=== PATIENT | female | born 1985 | race Caucasian/White ===

== ENCOUNTER 2018-07-23 17:55 | Emergency (ER) | payer OTHER ==
[2018-07-23 18:11] VITALS: BP 103/67
--- NOTE | 2018-07-23 18:14 | UC ---
FLU HPI - HPI Summary HPI Summary: 32 y/o female presets to the urgent care c/o fever, body aches, chills, nasal congestion with clear nasal discharge, mild dry cough, sore throat for the past 4 days. Pain w/ swallowing gis 10/19. She has been taking Ibuprofen PO . But none today. Temp has been low grade fever. She had 1 episode of diarrhea every day. But denies N/V of abdominal pain. Pt states mild COLBERT today. Pt has decrease appetite, but has been drinking fluids. Pt denies dizziness, SOB, chest pain, abdominal pain, N/V. She didn't got the flu vaccine this year. She states her best friend has been Dx with strep. - History of Current Complaint Chief Complaint: UCGeneralIllness Stated Complaint: FEVER, AND SORE THROAT Time Seen by Provider: 07/23/18 18:12 Hx Obtained From: Patient Hx Last Menstrual Period: 06/18/18 ?: No Onset/Duration: Gradual Onset, Lasting Days - 4 day Severity Currently: Mild Severity Initially: Moderate Pain Intensity: 5 - sore thraot Pain Scale Used: 0-10 Numeric Associated Signs & Symptoms: Positive: Fever, T Max - 100.1, Myalgia, Sore Throat, Nasal Congestion - yellowish, Headache - mild - Risk Factors Influenza Risk Factors: Negative - Allergy/Home Medications Allergies/Adverse Reactions: Allergies Allergy/AdvReac Type Severity Reaction Status Date / Time cephalexin [From Keflex] Allergy Swelling Verified 07/23/18 18:11 morphine Allergy Anaphylatic Verified 07/23/18 18:11 Shock Home Medications: Home Medications NK [No Home Medications Reported] 07/23/18 [History Confirmed 07/23/18] PMH/Surg Hx/FS Hx/Imm Hx Previously Healthy: Yes - Surgical History Surgical History: Yes Surgery Procedure, Year, and Place: 2005 appendectomy - Family History Known Family History: Positive: Hypertension - Social History Alcohol Use: None Substance Use Type: None Smoking Status (MU): Never Smoked Tobacco Review of Systems All Other Systems Reviewed And Are Negative: Yes Constitutional: Positive: Fever, Chills, Fatigue, Other - body aches Skin: Positive: Negative Eyes: Positive: Negative ENT: Positive: Sore Throat, Nasal Discharge - yellowish, Sinus Congestion Respiratory: Positive: Cough - dry Cardiovascular: Positive: Negative Gastrointestinal: Positive: Negative Genitourinary: Positive: Negative Motor: Positive: Negative Neurovascular: Positive: Negative Musculoskeletal: Positive: Myalgia Neurological: Positive: Headache Psychological: Positive: Negative Is Patient Immunocompromised?: No Physical Exam - Summary Physical Exam Summary: VITAL SIGNS: Reviewed. GENERAL: Patient is a well developed and nourished female who is sitting comfortable in the examining table. Patient is not in any acute respiratory distress. HEAD AND FACE: No signs of trauma. No ecchymosis, hematomas or skull depressions. No sinus tenderness. EYES: PERRLA, EOMI x 2, No injected conjunctiva, no nystagmus. No photophobia. EARS: Hearing grossly intact. Ear canals and tympanic membranes are within normal limits. Nose: edematous and erythematous nasal mucosa w/ clear nasal discharge. MOUTH: Positive no erythema, no tonsillar enlargement. Uvula in midline. NECK: Supple, trachea is midline, Positive anterior cervical lymphadenopathy, no JVD, no carotid bruit, no c-spine tenderness, neck with full ROM. No meningeal signs, no Kernig's or brudzinskis signs. CHEST: Symmetric, no tenderness at palpation LUNGS: Clear to auscultation bilaterally. No wheezing or crackles. CVS: Regular rate and rhythm, S1 and S2 present, no murmurs or gallops appreciated. ABDOMEN: Soft, non-tender. No signs of distention. No rebound no guarding, and no masses palpated. Bowel sounds are normal. EXTREMITIES: FROM in all major joints, no edema, no cyanosis or clubbing. NEURO: Alert and oriented x 3. No acute neurological deficits. Speech is normal and follows commands. SKIN: Dry and warm Triage Information Reviewed: Yes Vital Signs: Initial Vital Signs Temp 100.1 F 07/23/18 18:07 Pulse 67 07/23/18 18:07 Resp 19 07/23/18 18:07 BP 103/67 07/23/18 18:07 Pulse Ox 100 07/23/18 18:07 Flu Course/Dx - Course Course Of Treatment: 32 y/o female presets to the urgent care c/o fever, body aches, chills, nasal congestion with clear nasal discharge, mild dry cough, sore throat for the past 4 days. Pain w/ swallowing gis 10/19. She has been taking Ibuprofen PO . But none today. Temp has been low grade fever. She had 1 episode of diarrhea every day. But denies N/V of abdominal pain. Pt states mild COLBERT today. Pt has decrease appetite, but has been drinking fluids. Pt denies dizziness, SOB, chest pain, abdominal pain, N/V. She didn't got the flu vaccine this year. She states her best friend has been Dx with strep. Hx obtained. Pt with viral syndrome on examination. Rapid strep: negative, Rapid Influenza A&B: negative. Pt given at the clinic by nurse Ibuprofen PO to alleviate fever. Pt tolerated well medication and temp decrease 99.6. Pt advised to continue taking ibuprofen PO after meals to alleviates symptoms. However if fever persists and worsening of symptoms strongly advised to go inmediately to the ER for further evaluation and treatment. Advised on hand washing. Pt advised to rest, increase fluid intake, eat well and avoid strenuous exercise. D/c instructions explained. Pt understood and agreed with plan of care. - Differential Dx/Diagnosis Differential Diagnosis/HQI/PQRI: Bronchitis, Influenza, Upper Respiratory Infection Provider Diagnosis: Viral syndrome Discharge - Sign-Out/Discharge Documenting (check all that apply): Patient Departure - D/C home All imaging exams completed and their final reports reviewed: No Studies - Discharge Plan Condition: Stable Disposition: HOME Patient Education Materials: Viral Syndrome (ED) Forms: *Work Release Referrals: [facility] [place] [facility]ERRAL [Outside] - 2 Days Additional Instructions: 1-Strep test: negative, Rapid Influenza A&B: negative 2-Please continue taking ibuprofen PO q6-8hrs prn as instructed after meals to alleviate pain and swelling. Increase fluid intake, eat well, rest and avoid strenuous exercise 3- If symptoms worsen and you can't control fever with the ibuprofen/Tylenol please go immediately to the ER for further evaluation and treatment. Otherwise f/u with your PCP if not improvement of symptoms. - Billing Disposition and Condition Condition: STABLE Disposition: Home
[2018-07-23] MEDS ORDERED: Ibuprofen TAB* 400 MG PO ONE (18:22)
[2018-07-23 18:32] LABS: Influenza A Molecular NEGATIVE (Negative); Influenza B Molecular NEGATIVE (Negative)
== END 2018-07-23 19:00 | disposition home or self-care (01) ==
LOC: UCEAST 17:55
DX: B34.9 Viral infection, unspecified (principal); Z88.5 Allergy status to narcotic agent; Z88.1 Allergy status to other antibiotic agents
CPT/HCPCS: 87651; 99211; A9270-GY; G0463

== ENCOUNTER 2018-08-22 18:03 | Emergency (ER) | payer OTHER ==
[2018-08-22 18:29] VITALS: BP 103/68
--- NOTE | 2018-08-22 19:21 | UC ---
FLU HPI - HPI Summary HPI Summary: 32-year-old female presents with 5 day history of fever, chills, body aches, nasal congestion, runny nose, sore throat, and a nonproductive cough. Reports max temp of 102 F. States she had similar symptoms approximately 3 weeks ago which lasted approximately 10 days with complete resolution of symptoms. She was seen at this facility and tested for influenza and strep throat which were both negative. Denies ear pain, dysphagia, chest pain, shortness of breath, abdominal pain, nausea, vomiting, diarrhea. - History of Current Complaint Chief Complaint: UCGeneralIllness Stated Complaint: FEVER Time Seen by Provider: 08/22/18 19:03 Hx Obtained From: Patient Hx Last Menstrual Period: 06/18/18 Pain Intensity: 8 - Allergy/Home Medications Allergies/Adverse Reactions: Allergies Allergy/AdvReac Type Severity Reaction Status Date / Time cephalexin [From Keflex] Allergy Swelling Verified 08/22/18 18:29 morphine Allergy Anaphylatic Verified 08/22/18 18:29 Shock PMH/Surg Hx/FS Hx/Imm Hx Previously Healthy: Yes - Denies significant PMH - Surgical History Surgical History: Yes Surgery Procedure, Year, and Place: 2006 appendectomy - Family History Known Family History: Positive: Hypertension - Social History Occupation: Employed Full-time Lives: With Family Alcohol Use: None Substance Use Type: None Smoking Status (MU): Never Smoked Tobacco Review of Systems All Other Systems Reviewed And Are Negative: Yes Constitutional: Positive: Fever, Chills, Fatigue Skin: Negative: Rash Eyes: Negative: Drainage, Eye Redness ENT: Positive: Sore Throat, Nasal Discharge, Sinus Congestion. Negative: Ear Ache, Sinus Pain/Tenderness Respiratory: Positive: Cough. Negative: Shortness Of Breath Cardiovascular: Negative: Palpitations, Chest Pain Gastrointestinal: Negative: Abdominal Pain, Vomiting, Diarrhea, Nausea Genitourinary: Positive: Negative Musculoskeletal: Positive: Negative Neurological: Positive: Negative Is Patient Immunocompromised?: No Physical Exam - Summary Physical Exam Summary: GENERAL APPEARANCE: Well developed, well nourished, alert and cooperative, and appears to be in no acute distress. EYES: Conjunctiva clear. No drainage. Vision is grossly intact. EARS: External auditory canals and tympanic membranes clear, hearing grossly intact. NOSE: Mild-moderate nasal congestion with clear nasal discharge. THROAT: Mild pharyngeal erythema. No tonsilar inflammation, swelling, exudate, or lesions. Uvula midline. Oral cavity normal. Teeth and gingiva in good general condition. NECK: Neck supple, non-tender without lymphadenopathy. CARDIAC: Normal S1 and S2. No S3, S4 or murmurs. Rhythm is regular. There is no peripheral edema, cyanosis or pallor. Extremities are warm and well perfused. Capillary refill is less than 2 seconds. Peripheral pulses intact. LUNGS: Clear to auscultation without rales, rhonchi, wheezing or diminished breath sounds. Dry, non-productive cough. ABDOMEN: Positive bowel sounds. Soft, nondistended, nontender. No guarding or rebound. No masses or hepatosplenomegally. MUSKULOSKELETAL: ROM intact to all extremities. No joint erythema or tenderness. Normal muscular development. Normal gait. SKIN: Skin normal color, texture and turgor with no lesions or eruptions. Triage Information Reviewed: Yes Vital Signs: Initial Vital Signs Temp 99.8 F 08/22/18 18:25 Pulse 62 08/22/18 18:25 Resp 18 08/22/18 18:25 BP 103/68 08/22/18 18:25 Pulse Ox 100 08/22/18 18:25 Vital Signs Reviewed: Yes Flu Course/Dx - Course Course Of Treatment: 32-year-old female presents with 5 day history of fever, chills, body aches, nasal congestion, runny nose, sore throat, and a nonproductive cough. States she had similar symptoms approximately 3 weeks ago which lasted approximately 10 days with complete resolution of symptoms. She was seen at this facility and tested for influenza and strep throat which were both negative. Denies ear pain, dysphagia, chest pain, shortness of breath, abdominal pain, nausea, vomiting, diarrhea. Afebrile. Vital signs stable. Exam reveals an adult female in no acute distress with mild to moderate nasal congestion, clear nasal discharge, mild pharyngeal erythema without tonsillar swelling or exudate, no cervical lymphadenopathy, clear bilateral breath sounds , dry nonproductive cough, and otherwise unremarkable exam. Her symptoms are suspicious for influenza versus viral URI. Based on the duration of her symptoms she is not eligible for Tamiflu at this time. Recommending symptomatic treatment including Tessalon Perles one capsule every 8 hours as needed for cough. She is to return here or follow up with her primary care provider in 7 days if symptoms do not improve. Anticipatory guidance and warning symptoms were reviewed with the patient. Verbalizes understanding and agrees with plan of care. - Differential Dx/Diagnosis Differential Diagnosis/HQI/PQRI: Bronchitis, Influenza, Pneumonia, Upper Respiratory Infection Provider Diagnosis: Influenza Discharge - Sign-Out/Discharge Documenting (check all that apply): Patient Departure All imaging exams completed and their final reports reviewed: No Studies - Discharge Plan Condition: Stable Disposition: HOME Prescriptions: Benzonatate CAP* [Tessalon 100 MG CAP*] 100 mg PO TID PRN #30 cap PRN Reason: Cough Patient Education Materials: Influenza (ED) Referrals: No Primary Care Phys,NOPCP [Primary Care Provider] - Additional Instructions: Your history and exam are suspicious for influenza although it could also be another viral illness. In either case, these viral illnesses do not respond to antibiotics. Symptoms of viral illnesses typically run their course over 7-10 days. Get plenty of rest. Drink plenty of fluids to avoid dehydration especially if you are running any fever. Use an over the counter decongestant such as Sudafed according to directions for the nasal congestion. Take over the counter acetaminophen (Tylenol) or ibuprofen (Advil, Motrin) according to directions as needed for pain or fever. Take Tessalon Perles 1 cap every 8 hours as needed for cough. Use salt water gargles several times a day if you have a sore throat. You may also use Chloraseptic spray or Cepacol lonzenges according to directions which contain a numbing medication and can provide some temporary relief from your sore throat. Return here of follow up with your primary care provider in 7 days if symptoms persist. Seek immediate medical attention in the emergency room if you have fever greater than 100.5 F despite taking acetaminophen or ibuprofen, have chest pain , difficulty breathing, are unable to swallow, or have any worsening of symptoms. - Billing Disposition and Condition Condition: STABLE Disposition: Home
== END 2018-08-22 19:50 | disposition home or self-care (01) ==
LOC: UCEAST 18:03
DX: J11.1 Influenza due to unidentified influenza virus with other respiratory manifestations (principal); Z88.1 Allergy status to other antibiotic agents; Z88.5 Allergy status to narcotic agent
CPT/HCPCS: 99212; G0463

== ENCOUNTER 2019-06-27 12:53 | Emergency (ER) | payer OTHER ==
--- OUTSIDE RECORDS SUMMARY | 2019-06-27 13:03 | XMS REPORT | Continuity of Care Document ---
:1985 External Reference #:[id number] Author Name JAKI Patterson (transmitted by agent of provider Sarah Dyer) Address [address], [place] [address] Problems Description No Information Available Social History Type Date Description Comments Sex Unknown Tobacco Use Start: Unknown Never Smoked Cigarettes ETOH Use Denies alcohol use mild previous alcohol intake Recreational Drug Use Never Used Drugs Tobacco Use Start: Unknown Patient has never smoked Smoking Status Reviewed: 06/17/19 Patient has never smoked Exercise Type/Frequency Exercises regularly treadmill, elliptical 2-3 times per week weights 2-3 times per week Allergies, Adverse Reactions, Alerts Active Allergies Reaction Severity Comments Date Morphine anaphylaxis Severe 11/21/2018 Keflex swelling 11/21/2018 Medications Active Medications SIG Qnty Indications Ordering Provider Date No Active Medications Unknown 06/17/2019 History Medications Progesterone take one 14caps N94.6 Irina Allred, 04/08/2019 - Micronized capsule at [place] Unknown 200mg bedtime days Capsules 15-28 of cycle No Active Unknown 02/18/2019 - Medications 04/08/2019 Immunizations Description No Information Available Vital Signs Date Vital Result Comment 06/17/2019 10:36am Height 63 inches 5'3" Weight 124.00 lb Heart Rate 89 /min BP Systolic 109 mmHg BP Diastolic 62 mmHg Body Temperature 98.1 F O2 % BldC Oximetry 98 % BMI (Body Mass Index) 22.0 kg/m2 04/08/2019 11:37am Height 63 inches 5'3" Weight 125.50 lb Heart Rate 80 /min BP Systolic 100 mmHg BP Diastolic 68 mmHg Body Temperature 98.5 F O2 % BldC Oximetry 97 % BMI (Body Mass Index) 22.2 kg/m2 Last Menstrual Period [id number] Results Test Acquired Date Facility Test Result H/L Range Note Laboratory test 02/18/2019 [facility] Estradiol 153 pg/mL [address] [place] [address] [phone] Progesterone 12.6 ng/mL 2 Testosterone Free 02/18/2019 [facility] Free 0.46 0.06-1.03 3 & Total [address] Testosterone ng/[place] [address] ng/dl [phone] Testosterone 35 ng/dL 8-60 4 Laboratory test 02/18/2019 [facility] Dhea Sulfate 161 g/dL 45-[address] [place] [address] [phone] TSH (Thyroid Stim Horm) 2.59 mcIU/mL Normal 0.34-5.60 Free T4 (Free Thyroxine) 0.90 ng/dL Normal 0.61-1.12 T3 Total 150 ng/dL Normal 87-178 Thyroperoxidase AB 0.99 IU/mL Normal <9 Thyroglobulin AB 0.0 IU/mL <4.0 Homocysteine 11 mcmol/L 6 CRP High Sensitivity 0.81 mg/L <2.00 Comp Metabolic 02/18/2019 [facility] Sodium 138 mmol/L Normal 135-[address] [place] [address] [phone] Potassium 4.0 mmol/L Normal 3.5-5.0 Chloride 104 mmol/L Normal 101-111 Co2 Carbon Dioxide 26 mmol/L Normal 22-32 Anion Gap 8 mmol/L Normal 2-11 Glucose 80 mg/dL Normal 70-100 Blood Urea Nitrogen 11 mg/dL Normal 6-24 Creatinine 0.80 mg/dL Normal 0.51-0.95 BUN/Creatinine Ratio 13.8 Normal 8-20 Calcium 9.5 mg/dL Normal 8.6-10.3 Total Protein 7.2 g/dL Normal 6.4-8.9 Albumin 4.6 g/dL Normal 3.2-5.2 Globulin 2.6 g/dL Normal 2-4 Albumin/Globulin Ratio 1.8 Normal 1-3 Total Bilirubin 0.60 mg/dL Normal 0.2-1.0 Alkaline Phosphatase 42 U/L Normal 34-104 Alt 12 U/L Normal 7-52 Ast 15 U/L Normal 13-39 Egfr Non- 83.1 >60 Egfr 100.6 >60 7 Laboratory test 02/18/2019 [facility] Vitamin D 21.0 ng/mL Normal 20-50 [address] Total [address](Oh) [place] [address] [phone] Vitamin B12 260 pg/mL Normal 180-914 9 CBC Auto 02/18/2019 [facility] White Blood 6.4 10^3/uL Normal 3.5-10.[address] [place] [address] [phone] Red Blood Count 4.72 10^6/uL Normal 3.70-4.87 Hemoglobin 14.4 g/dL Normal 12.0-16.0 Hematocrit 42 % Normal 35-47 Mean Corpuscular Volume 89 fL Normal 80-97 Mean Corpuscular Hemoglobin 31 pg Normal 27-31 Mean Corpuscular HGB Conc 34 g/dL Normal 31-36 Red Cell Distribution Width 13 % Normal 10-15 Platelet Count 252 10^3/uL Normal 150-450 Mean Platelet Volume 8.1 fL Normal 7.4-10.4 Abs Neutrophils 3.9 10^3/uL Normal 1.5-7.7 Abs Lymphocytes 1.9 10^3/uL Normal 1.0-4.8 Abs Monocytes 0.5 10^3/uL Normal 0-0.8 Abs Eosinophils 0.1 10^3/uL Normal 0-0.6 Abs Basophils 0.0 10^3/uL Normal 0-0.2 Abs Nucleated RBC 0.0 10^3/uL Granulocyte % 61.8 % Lymphocyte % 29.3 % Monocyte % 7.2 % Eosinophil % 1.4 % Basophil % 0.3 % Nucleated Red Blood Cells % 0.0 Laboratory test 02/18/2019 [facility] Iron (Fe) 135 g/dL Normal 50-[address] [place] [address] [phone] Ferritin 47.1 ng/mL Normal 11-307 1 Estradiols <40 pg/mL are sent to a reference lab for low range testing. Postmenopausal Females < 20 Ovulating females: by day in cycle relative to LH Peak Follicular phase - 12 10-50 - 4 60-200 Mid-cycle - 1 120-375 Luteal phase + 2 50-155 + 6 60-260 + 12 15-115 2 Female reference ranges for Progesterone: Follicular phase.......0.3 - 1.5 ng/ml Mid-luteal phase.......5.2 - 18.5 ng/ml Postmenopausal.........< 0.8 ng/ml 1st trimester.........4.7 - 50.0 ng/ml 2nd trimester.........19.4 - 45.3 ng/ml 3 ADDITIONAL INFORMATION Testing performed by [facility]. This test was developed and its performance characteristics determined by [facility] in a manner consistent with CLIA requirements. This test has not been cleared or approved by the U.S. Food and Drug Administration. 4 ADDITIONAL INFORMATION Testing performed by Liquid Chromatography-Tandem Mass Spectrometry (LC-MS/MS). This test was developed and its performance characteristics determined by [facility] in a manner consistent with CLIA requirements. This test has not been cleared or approved by the U.S. Food and Drug Administration. Test Performed by: [facility] [place] [address] Elevator Repairer: Sumeet Harris M.D. Ph.D.; CLIA# [id number] 5 Test Performed by: [place] [address] Elevator Repairer: Sumeet Harris M.D. Ph.D.; CLIA# [id number] 6 REFERENCE VALUE <=13 (Fasting) ADDITIONAL INFORMATION This test was developed and its performance characteristics determined by [facility] in a manner consistent with CLIA requirements. This test has not been cleared or approved by the U.S. Food and Drug Administration. Test Performed by: [facility] - [address] [address] Elevator Repairer: Sumeet Harris M.D. Ph.D.; IA# [id number] 7 Because ethnic data is not always readily available, this report includes an eGFR for both -Americans and non- Americans. The National Kidney Disease Education Program (NKDEP) does not endorse the use of the MDRD equation for patients that are not between the ages of 18 and 70, are , have extremes of body size, muscle mass, or nutritional status, or are non- or non-. According to the National Kidney Foundation, irrespective of diagnosis, the stage of the disease is based on the level of kidney function: Stage Description GFR(mL/min/1.73 m(2)) 1 Kidney damage with normal or decreased GFR 90 2 Kidney damage with mild decrease in GFR 60-89 3 Moderate decrease in GFR 30-59 4 Severe decrease in GFR 15-29 5 Kidney failure <15 (or dialysis) 8 Total 25-Hydroxyvitamin D2 and D3 (25-OH-VitD) <10 ng/mL (severe deficiency) 10-19 ng/mL (mild to moderate deficiency) 20-50 ng/mL (optimum levels) 51-80 ng/mL (increased risk of hypercalciuria) >80 ng/mL (toxicity possible) 9 Normal Range 180 to 914 Indeterminate Range 145 to 180 Deficient Range <145 Procedures Description No Information Available Medical Devices Description No Information Available Encounters Type Date Location Provider Dx Diagnosis Office Visit 06/17/2019 [employer] Irina N94.6 Dysmenorrhea, 10:30a [facility] JAKI Allred unspecified E53.9 Vitamin B deficiency, unspecified E55.9 Vitamin D deficiency, unspecified [facility] [place] [facility] R53.83 Other fatigue E53.9 Vitamin B deficiency, unspecified E55.9 Vitamin D deficiency, unspecified Office Visit 02/18[facility]2019 [facility] Patterson94.6 [facility] unspecified [facility] R53.83 Other fatigue Assessments Date Code Description Provider 06/17/2019 N94.6 Dysmenorrhea, unspecified Irina Allred, [place] 06/17/2019 E53.9 Vitamin B deficiency, unspecified Irina Allred, [place] 06/17/2019 E55.9 Vitamin D deficiency, unspecified Irina Allred, [place] 04/08/2019 N94.6 Dysmenorrhea, unspecified Irina Allred, [place] 04/08/2019 R53.83 Other fatigue Irina Allred, [place] 04/08/2019 E53.9 Vitamin B deficiency, unspecified Irina Allred, [place] 04/08/2019 E55.9 Vitamin D deficiency, unspecified Irina Allred, [place] 02/18/2019 N94.6 Dysmenorrhea, unspecified Irina Allred, [place] 02/18/2019 R53.83 Other fatigue JAKI Patterson Plan of Treatment Future Appointment(s):07/16/2019 2:00 pm - Paul Smith MD at [facility]/06/2020 - Irina Allred, PAN94.6 Dysmenorrhea, unspecifiedReferral:Paul Smith MD, piano builder/Phys/OsteoRecommendations:we will have you see Dr. Smith for a consult and endometriosis options. continue beautiful whole foods nutrition avoid potatoes, be prepared with Benadryl! try a probiotic/ [employer]'s probiotic when you can afford curcumin, go on this for inflammation do a trial of CBD oil for the pain, put on board at first sign. start w 10mg/that is one dropperful but you can go to 40-50mg and even repeat in a few hours. max would be 150mg in a day.E53.9 Vitamin B deficiency, unspecifiedRecommendations:continue B12 Take B12 1000mcg daily , you are deficient - you can get this in meats, especially organ meats please take orally for at least a month or two and not rely on food just till you are built up.E55.9 Vitamin D deficiency, unspecifiedRecommendations:Vitamin D3 5000units with K2 Functional Status Description No Information Available Mental Status Description No Information Available Referrals Refer to Dr Reason for Referral Status Appt Date Paul Smith MD pt with clinical signs endometriosis, see my Created notes. success with making lifestyle, nutrition changes but still w significant pain, GI sxs with menses. feels better in many ways. felt depressed on trial of oral progesterone therapy. [address], [place] [address] [phone]
[2019-06-27 13:08] VITALS: BP 110/66
--- NOTE | 2019-06-27 13:41 | UC ---
UC General HPI - HPI Summary HPI Summary: 33-year-old woman comes in with a chief complaint of fever and fatigue. Yesterday morning she woke up with headache fever and fatigue. She also had diarrhea yesterday. Today the headache is gone. She still feels fatigued. Occasionally has had some rhinorrhea. No sore throat. No chest congestion. No abdominal pain no dysuria and. She has been eating. Denies any concern of sexually transmitted infection. Patient reports she's been having similar symptoms on and off for about 6 months. No known tick bites. No chest pain or shortness of breath or sputum. She did have some rashes on her elbows about 6 months ago. She's had intermittent rashes on her arms or upper chest since that time. - History of Current Complaint Chief Complaint: UCGeneralIllness Stated Complaint: FEVER FATIGUE Time Seen by Provider: 06/27/19 13:07 Hx Last Menstrual Period: 05/26/19 Pain Intensity: 0 - Allergy/Home Medications Allergies/Adverse Reactions: Allergies Allergy/AdvReac Type Severity Reaction Status Date / Time cephalexin [From Keflex] Allergy Swelling Verified 06/27/19 13:08 morphine Allergy Anaphylatic Verified 06/27/19 13:08 Shock PMH/Surg Hx/FS Hx/Imm Hx Previously Healthy: Yes - Surgical History Surgical History: Yes Surgery Procedure, Year, and Place: 2006 appendectomy - Family History Known Family History: Positive: Hypertension - Social History Alcohol Use: Rare Substance Use Type: None Smoking Status (MU): Never Smoked Tobacco Review of Systems All Other Systems Reviewed And Are Negative: Yes Constitutional: Positive: Fever, Fatigue, Other - SEE HPI Skin: Positive: Other - SEE HPI Eyes: Positive: Negative ENT: Positive: Nasal Discharge, Sinus Congestion Respiratory: Positive: Negative Cardiovascular: Positive: Negative Gastrointestinal: Positive: Diarrhea, Other - SEE HPI Genitourinary: Positive: Negative Motor: Positive: Negative Neurovascular: Positive: Negative Musculoskeletal: Positive: Myalgia Neurological: Positive: Headache Psychological: Positive: Negative Is Patient Immunocompromised?: No Physical Exam Triage Information Reviewed: Yes Appearance: No Pain Distress, Well-Nourished, Ill-Appearing - MILD Vital Signs: Initial Vital Signs Temp 99.0 F 06/27/19 13:03 Pulse 82 06/27/19 13:03 Resp 18 06/27/19 13:03 BP 110/66 06/27/19 13:03 Pulse Ox 97 06/27/19 13:03 Vital Signs Reviewed: Yes Eye Exam: Normal Eyes: Positive: Conjunctiva Clear ENT: Positive: Pharynx normal, TMs normal Neck: Positive: Supple Respiratory: Positive: Lungs clear, Normal breath sounds, No respiratory distress Cardiovascular: Positive: RRR Abdomen Description: Positive: Nontender, Soft. Negative: CVA Tenderness (R), CVA Tenderness (L) Bowel Sounds: Positive: Present Musculoskeletal: Positive: Strength Intact, ROM Intact Neurological: Positive: Alert, Muscle Tone Normal Psychological: Positive: Normal Response To Family, Age Appropriate Behavior Skin Exam: Normal Course/Dx - Course Course Of Treatment: We discussed different possible causes for recurrent fever and fatigue. We discussed the possibility of a chronic sinusitis. At this time the patient prefers to be on an antibiotic. She's taken Augmentin before and tolerated it well. I prescribed Augmentin 875 twice a day for 10 days. Patient has no primary care physician. We also discussed the possibility of Lyme disease. Mononucleosis is less likely given the 6 month duration of intermittent symptoms. CRP, CBC, CMP, Lyme, mono, TSH are all pending. Patient will follow- up with the [facility] while she is in the process of finding a new primary care physician. She will get reevaluated sooner if not improving or worse. - Diagnoses Provider Diagnosis: Fatigue, Fever Discharge ED - Sign-Out/Discharge Documenting (check all that apply): Patient Departure All imaging exams completed and their final reports reviewed: No Studies - Discharge Plan Condition: Stable Disposition: HOME Prescriptions: Amoxicillin/Clavulanate TAB* [Augmentin TAB 875*] 875 mg PO BID #20 tab Patient Education Materials: Fever in Adults (ED), Fatigue (ED) Forms: *Work Release Referrals: [facility] [Outside] [facility] [Outside] Additional Instructions: FOLLOW UP WITH [facility]. CALL THE [facility] REFERRAL LINE TO FIND A PRIMARY CARE PROVIDER GET REEVALUATED SOONER IF NOT IMPROVED OR WORSE OR ANY QUESTIONS OR CONCERNS. - Billing Disposition and Condition Condition: STABLE Disposition: Home
[2019-06-27 19:56] LABS: Anion Gap 7 mmol/L (2-11); CO2 Carbon Dioxide 25 mmol/L (22-32); Chloride 107 mmol/L (101-111); Potassium 3.7 mmol/L (3.5-5.0); Sodium 139 mmol/L (135-145)
[2019-06-27 19:59] LABS: TSH (Thyroid Stimulating Horm) 3.82 mcIU/mL (0.34-5.60)
[2019-06-27 20:02] LABS: ALT 8 U/L (7-52); AST 11 U/L (13-39); Albumin/Globulin Ratio 1.6 (1-3); Alkaline Phosphatase 38 U/L (34-104); BUN/Creatinine Ratio 12.8 (8-20); Blood Urea Nitrogen 10 mg/dL (6-24); C Reactive Protein < 1.00 mg/L (<8.01); EGFR African American 103.6 (>60); EGFR Non-African American 85.6 (>60); Globulin 2.5 g/dL (2-4); Glucose 108 mg/dL (70-100); Total Protein 6.5 g/dL (6.4-8.9)
[2019-06-27 21:20] LABS: ABS Eosinophils 0.1 10^3/ul (0-0.6); ABS Lymphocytes 1.7 10^3/ul (1.0-4.8); ABS Monocytes 0.4 10^3/ul (0-0.8); ABS Neutrophils 3.1 10^3/ul (1.5-7.7); Eosinophil % 2.3 %; Hematocrit 40 % (35-47); Hemoglobin 13.9 g/dL (12.0-16.0); Lymphocyte % 31.6 %; Mean Corpuscular HGB Conc 34 g/dL (31-36); Mean Corpuscular Hemoglobin 31 pg (27-31); Mean Corpuscular Volume 90 fL (80-97); Mean Platelet Volume 8.2 fL (7.4-10.4); Platelet Count 221 10^3/uL (150-450); Red Blood Count 4.47 10^6 /uL (3.70-4.87); Red Cell Distribution Width 13 % (10-15); White Blood Count 5.3 10^3/uL (3.5-10.8)
--- NOTE | 2019-06-28 07:21 | UC ---
- Progress Note Progress Note: Labs reviewed, 33 yo seen with acute on chronic malaise and fatigue. Normal WBC , normal chemsitries, negative monospot, normal thyroid and CRP is low. No change in management based on labs; was referred to [facility]. Course/Dx - Diagnoses Provider Diagnoses: Fatigue, Fever Discharge ED - Sign-Out/Discharge Documenting (check all that apply): Post-Discharge Follow Up All imaging exams completed and their final reports reviewed: No Studies - Discharge Plan Condition: Stable Disposition: HOME Prescriptions: Amoxicillin/Clavulanate TAB* [Augmentin TAB 875*] 875 mg PO BID #20 tab Patient Education Materials: Fever in Adults (ED), Fatigue (ED) Forms: *Work Release Referrals: [facility] [Outside] [facility] [Outside] Additional Instructions: FOLLOW UP WITH [facility]. CALL THE [facility] REFERRAL LINE TO FIND A PRIMARY CARE PROVIDER GET REEVALUATED SOONER IF NOT IMPROVED OR WORSE OR ANY QUESTIONS OR CONCERNS. - Billing Disposition and Condition Condition: STABLE Disposition: Home
[2019-06-29 12:22] LABS: EBV Capsid Ag IgG Ab Positive (Negative); EBV Capsid Ag IgM Ab Negative (Negative); Epstein-Barr Nuclear Antigen Positive (Negative)
--- NOTE | 2019-06-29 15:17 | UC ---
- Progress Note Progress Note: Lab results from June 27, 2019 come back. Monospot is negative. Ebstein Sánchez IgG and antigen are both positive and the IgM is negative which results suggest past infection. CBC CMP are normal with the exception that the blood sugar is elevated slightly at 108. Normal blood sugar 60-100. Present call patient inform them of the results that everything since essentially negative and does indicate prior history of mononucleosis although no acute infection. Patient is to follow-up with [facility] or her primary care physician. Course/Dx - Diagnoses Provider Diagnoses: Fatigue, Fever Discharge ED - Sign-Out/Discharge Documenting (check all that apply): Patient Departure All imaging exams completed and their final reports reviewed: No Studies - Discharge Plan Condition: Stable Disposition: HOME Prescriptions: Amoxicillin/Clavulanate TAB* [Augmentin TAB 875*] 875 mg PO BID #20 tab Patient Education Materials: Fever in Adults (ED), Fatigue (ED) Forms: *Work Release Referrals: [facility] [Outside] [facility] [Outside] Additional Instructions: FOLLOW UP WITH [facility]. CALL THE [facility] REFERRAL LINE TO FIND A PRIMARY CARE PROVIDER GET REEVALUATED SOONER IF NOT IMPROVED OR WORSE OR ANY QUESTIONS OR CONCERNS. - Billing Disposition and Condition Condition: STABLE Disposition: Home
== END 2019-06-27 13:55 | disposition home or self-care (01) ==
LOC: UCEAST 12:53
DX: R50.9 Fever, unspecified (principal); R53.83 Other fatigue; R51 Headache; J34.89 Other specified disorders of nose and nasal sinuses; R09.89 Other specified symptoms and signs involving the circulatory and respiratory systems; R09.81 Nasal congestion; M79.10 Myalgia, unspecified site; Z88.1 Allergy status to other antibiotic agents; Z88.5 Allergy status to narcotic agent
CPT/HCPCS: 36415; 80053; 84443; 85025; 86140; 86308; 86618; 86664; 86665; 99212; G0463